=== PATIENT | male | born 1955 | race Caucasian/White ===

== ENCOUNTER 2025-04-20 14:52 | Emergency (ER) | payer MEDICARE ==
[~2025-04-20] VITALS: Ht 172.7 cm; Wt 75.7 kg
[2025-04-20 15:00] VITALS: PULSE 96; RESP 20; TEMP 98.7
[2025-04-20] MEDS ORDERED: IOPAMIDOL 370 MG/ML 100 ML INFUS..BTL INJ ONE (18:08)
[2025-04-20] MEDS: SODIUM CHLORIDE 0.9% 1000ML 1,000 ML IV ONE (18:45)
[2025-04-20 19:38] VITALS: BP 128/82; PULSE 82; RESP 18; O2SAT 96
== END 2025-04-20 19:35 | disposition home or self-care (01) ==
LOC: FSED 14:59
DX: R42 Dizziness and giddiness (principal); R55 Syncope and collapse; R56.9 Unspecified convulsions; I10 Essential (primary) hypertension; E78.5 Hyperlipidemia, unspecified
CPT/HCPCS: 70450; 71260; 80053; 84484; 85025; 93005; 99284; J7030; Q9967